=== PATIENT | male | born 1970 | race Caucasian/White ===

== ENCOUNTER 2017-04-14 15:59 | Emergency (ER) | payer BC ==
[2017-04-14 16:06] VITALS: BP 127/82
--- NOTE | 2017-04-14 17:28 | UC ---
General HPI - HPI Summary HPI Summary: FOUND EMBEDDED TICK IN RIGHT MID BACK THREE WEEKS AGO. SMALL RASH DEVELOPED BUT FELT FINE. LAST WEEK HAS HAD ACHES PAINS FATIGUE, CHILLS AND SWEATS. SMALL RASH AREA REMAINS, HAS NOT INCREASED IN SIZE. CONCERN FOR LYME DISEASE. NEW TO AREA, NO PRIMARY CARE CURRENTLY ESTABLISHED. - History of Current Complaint Chief Complaint: UCGeneralIllness Stated Complaint: COLD AND ACHES Time Seen by Provider: 04/14/17 16:40 Hx Obtained From: Patient Onset/Duration: Gradual Onset, Lasting Weeks, Still Present Onset Severity: Moderate Current Severity: Moderate Pain Intensity: 0 Associated Signs & Symptoms: Positive: Fever, Weakness. Negative: Melena, Palpitations, Recent Medication Changes, Syncope, SOB - Allergy/Home Medications Allergies/Adverse Reactions: Allergies Allergy/AdvReac Type Severity Reaction Status Date / Time No Known Allergies Allergy Verified 04/14/17 16:06 PMH/Surg Hx/FS Hx/Imm Hx Previously Healthy: Yes - Surgical History Surgical History: Yes Surgery Procedure, Year, and Place: hernia repair - Family History Known Family History: Negative: Cardiac Disease, Diabetes - Social History Occupation: Employed Full-time Lives: With Family Alcohol Use: Weekly Substance Use Type: None Smoking Status (MU): Never Smoked Tobacco Review of Systems Constitutional: Chills, Fatigue Skin: Rash Eyes: Negative ENT: Negative Respiratory: Negative Cardiovascular: Negative Gastrointestinal: Negative Genitourinary: Negative Motor: Negative Neurovascular: Negative Musculoskeletal: Negative Neurological: Negative Psychological: Negative All Other Systems Reviewed And Are Negative: Yes Physical Exam Triage Information Reviewed: Yes Appearance: No Pain Distress, Well-Nourished, Ill-Appearing - MILDLY Vital Signs: Initial Vital Signs Temp 98.7 F 04/14/17 16:03 Pulse 79 04/14/17 16:03 Resp 16 04/14/17 16:03 BP 127/82 04/14/17 16:03 Pulse Ox 100 04/14/17 16:03 Vital Signs Reviewed: Yes Eye Exam: Normal ENT Exam: Normal ENT: Positive: Normal ENT inspection, Hearing grossly normal, Pharynx normal, TMs normal Dental Exam: Normal Neck exam: Normal Neck: Positive: Supple, Nontender, No Lymphadenopathy Respiratory Exam: Normal Respiratory: Positive: Chest non-tender, Lungs clear, Normal breath sounds, No respiratory distress, No accessory muscle use Cardiovascular Exam: Normal Cardiovascular: Positive: RRR, No Murmur, Pulses Normal, Brisk Capillary Refill Abdominal Exam: Normal Abdomen Description: Positive: Nontender, No Organomegaly Musculoskeletal Exam: Normal Musculoskeletal: Positive: Strength Intact, ROM Intact Neurological Exam: Normal Psychological Exam: Normal Skin: Positive: rashes - SMALL 1CM X 2CM ERRYTHEMATOUS AREA RIGHT MIDBACK Course/Dx - Differential Dx - Multi-Symptom Differential Diagnoses: Other - POSSIBLE LYME DISEASE Provider Diagnoses: REMOTE TICK BITE; FATIGUE, MYALGIAS; POSSIBLE LYME DISEASE Discharge - Discharge Plan Condition: Stable Disposition: HOME Prescriptions: DOXYcycline CAP(*) [DOXYcycline 100MG CAP(*)] 100 mg PO BID #42 cap Patient Education Materials: Lyme Disease (ED), Tick Bite (ED) Referrals: [facility] [place] [facility] [Outside] Miranda ROSE,Yanick Mcgraw [Medical Doctor] -
[2017-04-14 18:34] LABS: Hematocrit 42 % (42-52); Mean Corpuscular HGB Conc 33 g/dl (31-36); Mean Corpuscular Hemoglobin 30 pg (27-31); Mean Corpuscular Volume 89 fL (80-94); Mean Platelet Volume 8 um3 (7.4-10.4); Red Blood Count 4.74 10^6/ul (4.0-5.4); Red Cell Distribution Width 13 % (10.5-15); White Blood Count 12.1 10^3/ul (3.5-10.8)
== END 2017-04-14 17:00 | disposition home or self-care (01) ==
LOC: UCEAST 15:59
DX: S20.469A Insect bite (nonvenomous) of unspecified back wall of thorax, initial encounter (principal); W57.XXXA Bitten or stung by nonvenomous insect and other nonvenomous arthropods, initial encounter; R53.83 Other fatigue; M79.1 Myalgia
CPT/HCPCS: 36415; 85025; 86617; 86618; 99202; G0463

== ENCOUNTER 2018-06-09 08:58 | Emergency (ER) | payer BC, OTHER ==
[2018-06-09 09:06] VITALS: BP 128/92
[2018-06-09] MEDS ORDERED: Tetan/Diph/Pertus SYR(Tdap)* 0.5 ML SYR(BOOSTRIX) use SYR IM ONE (09:20)
--- NOTE | 2018-06-09 10:16 | UC ---
Laceration HPI - HPI Summary HPI Summary: Patient comes to urgent care today with a 1.5 cm laceration to the mid right third finger palmar surface. He cut this on a trailer hitch prior to arrival neuro motor and circulation intact distally tetanus will be updated today - History Of Current Complaint Chief Complaint: UCLaceration Stated Complaint: FINGER LACERATION Time Seen by Provider: 06/09/18 10:16 Hx Obtained From: Patient Laceration Location: Finger - Right third finger mid shaft palmar surface Mechanism Of Injury: Sharp Trauma Onset/Duration: Sudden Onset Pain Intensity: 4 Pain Scale Used: 0-10 Numeric Aggravating Factors: Nothing Related History: Dominant Hand Right - Allergies/Home Medications Allergies/Adverse Reactions: Allergies Allergy/AdvReac Type Severity Reaction Status Date / Time No Known Allergies Allergy Verified 06/09/18 09:06 PMH/Surg Hx/FS Hx/Imm Hx Previously Healthy: Yes - Surgical History Surgical History: Yes Surgery Procedure, Year, and Place: hernia repair - Family History Known Family History: Positive: None Negative: Cardiac Disease, Diabetes - Social History Occupation: Employed Full-time Lives: With Family Alcohol Use: Weekly Substance Use Type: None Smoking Status (MU): Never Smoked Tobacco - Immunization History Most Recent Tetanus Shot: not up to date Hx Tetanus, Diphtheria Vaccination: Yes Review of Systems Constitutional: Negative Skin: Other - 1.5 cm laceration right middle finger Eyes: Negative ENT: Negative Respiratory: Negative Cardiovascular: Negative Gastrointestinal: Negative Genitourinary: Negative Motor: Negative Neurovascular: Negative Musculoskeletal: Negative Neurological: Negative Psychological: Negative Is Patient Immunocompromised?: No All Other Systems Reviewed And Are Negative: Yes Physical Exam Triage Information Reviewed: Yes Appearance: Well-Appearing, No Pain Distress, Well-Nourished Vital Signs: Initial Vital Signs Temp 97.5 F 06/09/18 09:03 Pulse 59 06/09/18 09:03 Resp 18 06/09/18 09:03 BP 128/92 06/09/18 09:03 Pulse Ox 99 06/09/18 09:03 Vital Signs Reviewed: Yes Eye Exam: Normal Eyes: Positive: Conjunctiva Clear ENT Exam: Normal ENT: Positive: Normal ENT inspection, Hearing grossly normal. Negative: Trismus , Muffled voice, Hoarse voice Dental Exam: Normal Neck exam: Normal Neck: Positive: Supple, Nontender Respiratory Exam: Normal Respiratory: Positive: Chest non-tender, No respiratory distress, No accessory muscle use Cardiovascular Exam: Normal Cardiovascular: Positive: RRR, Pulses Normal, Brisk Capillary Refill Musculoskeletal Exam: Normal Musculoskeletal: Positive: Strength Intact, ROM Intact, No Edema Neurological Exam: Normal Neurological: Positive: Alert, Muscle Tone Normal Psychological Exam: Normal Psychological: Positive: Normal Response To Family Skin Exam: Other Skin: Positive: Other - 1.5 cm laceration right 3rd finger palmar surface-mid shaft Laceration Repair - Laceration Repair 1 Description: Linear Laceration Size After Repair: Length (cm) - 1.5, Width (mm) - 2, Depth (mm) - 3 Modified For Repair: No Type Injection: Digital Anesthesia Used: 1.0% Lido - 5cc Cleansing Completed Via Routine Prep: Yes Irrigation With Pressure Irrigation Device: Yes Closure Material: Sutures Suture Of: Skin Suture Type: Nylon - 5 number 5.0 suture Re-Evaluation - Re-Evaluation First Eval Change: Improved - well approximated n/m/c intact distally Laceration Course/Dx - Course/Dx Course Of Treatment: dressing spling for protection, tylenol ibuprofen prn return in 10-12 days for suture removal - Differential Dx - Laceration/Wound Provider Diagnoses: 1.5 cm laceration with suture repair right 3rd finger Discharge - Sign-Out/Discharge Documenting (check all that apply): Patient Departure - Discharge Plan Condition: Stable Disposition: HOME Prescriptions: Amoxicillin/Clavulanate TAB* [Augmentin TAB 875*] 875 mg PO BID #20 tab Patient Education Materials: Diphtheria/Pertussis/Tetanus Vaccine (By injection ), Finger Laceration (ED) Forms: *Work Release Referrals: [facility] [Outside] - If Needed [facility] [place] [facility] [Outside] - If Needed Additional Instructions: Return in 10-12 days for suture removal - Billing Disposition and Condition Condition: STABLE Disposition: Home
[2018-06-09] MEDS ORDERED: Lidocaine 1%* 5 ML VIAL INJ ONE (10:18)
== END 2018-06-09 11:15 | disposition home or self-care (01) ==
LOC: UCEAST 08:58
DX: S61.212A Laceration without foreign body of right middle finger without damage to nail, initial encounter (principal); W26.8XXA Contact with other sharp object(s), not elsewhere classified, initial encounter; Y93.9 Activity, unspecified; Y92.9 Unspecified place or not applicable; Z23 Encounter for immunization
CPT/HCPCS: 12001; 12042; 90471; 90715; 99211; G0463

== ENCOUNTER 2018-06-25 10:37 | Emergency (ER) | payer OTHER ==
[2018-06-25 10:45] VITALS: BP 118/75
--- NOTE | 2018-06-25 10:59 | UC ---
HPI Wound/Suture Re-check - History Of Current Complaint Chief Complaint: UCLaceration Stated Complaint: STITCH REMOVAL Time Seen by Provider: 06/25/18 10:52 Hx Obtained From: Patient Onset/Duration: Sudden Onset Pain Intensity: 0 Pain Scale Used: 0-10 Numeric - Allergies/Home Medications Allergies/Adverse Reactions: Allergies Allergy/AdvReac Type Severity Reaction Status Date / Time No Known Allergies Allergy Verified 06/25/18 10:43 Home Medications: Home Medications NK [No Home Medications Reported] 06/25/18 [History Confirmed 06/25/18] PMH/Surg Hx/FS Hx/Imm Hx Previously Healthy: Yes - Surgical History Surgical History: Yes Surgery Procedure, Year, and Place: hernia repair - Family History Known Family History: Positive: None Negative: Cardiac Disease, Diabetes - Social History Occupation: Employed Full-time Lives: With Family Alcohol Use: Weekly Substance Use Type: None Smoking Status (MU): Never Smoked Tobacco - Immunization History Most Recent Tetanus Shot: update 05/2018 Hx Tetanus, Diphtheria Vaccination: Yes Review of Systems Constitutional: Negative Skin: Other - well healed wound right index finger Eyes: Negative ENT: Negative Respiratory: Negative Cardiovascular: Negative Gastrointestinal: Negative Genitourinary: Negative Motor: Negative Neurovascular: Negative Musculoskeletal: Negative Neurological: Negative Psychological: Negative Is Patient Immunocompromised?: No All Other Systems Reviewed And Are Negative: Yes Physical Exam Triage Information Reviewed: Yes Appearance: Well-Appearing, No Pain Distress, Well-Nourished Vital Signs: Initial Vital Signs Temp 97.7 F 06/25/18 10:41 Pulse 65 06/25/18 10:41 Resp 16 06/25/18 10:41 BP 118/75 06/25/18 10:41 Pulse Ox 99 06/25/18 10:41 Vital Signs Reviewed: Yes Eye Exam: Normal Eyes: Positive: Conjunctiva Clear ENT Exam: Normal ENT: Positive: Normal ENT inspection, Hearing grossly normal. Negative: Trismus , Muffled voice, Hoarse voice Dental Exam: Normal Neck exam: Normal Neck: Positive: Supple, Nontender Respiratory Exam: Normal Respiratory: Positive: No respiratory distress, No accessory muscle use Cardiovascular Exam: Normal Cardiovascular: Positive: RRR, Pulses Normal, Brisk Capillary Refill Musculoskeletal Exam: Normal Musculoskeletal: Positive: Strength Intact, ROM Intact, No Edema Neurological Exam: Normal Neurological: Positive: Alert, Muscle Tone Normal Psychological Exam: Normal Skin Exam: Normal Skin: Positive: Other - well approximated/healed wound right index finger Course/Dx - Course Course Of Treatment: sutures removed patient tolerated well wound well approximated full rom follow with pcp prn (referral made - Differential Dx - Laceration/Wound Provider Diagnoses: suture removal right index finger Discharge - Sign-Out/Discharge Documenting (check all that apply): Patient Departure All imaging exams completed and their final reports reviewed: No Studies - Discharge Plan Condition: Stable Disposition: HOME Patient Education Materials: Stitches Removal (ED) Referrals: No Primary Care Phys,NOPCP [Primary Care Provider] - [facility] [place] [facility] [Outside] - Billing Disposition and Condition Condition: STABLE Disposition: Home
== END 2018-06-25 11:07 | disposition home or self-care (01) ==
LOC: UCEAST 10:37
DX: Z48.02 Encounter for removal of sutures (principal)

== ENCOUNTER 2019-05-10 13:28 | Emergency (ER) | payer OTHER ==
[2019-05-10 13:57] VITALS: BP 142/83
--- NOTE | 2019-05-10 14:34 | UC ---
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 CAGE WAS FOR AN POUCHED RAT. THE HEAD PERSONAL FITNESS TRAINER SUGGESTED HE BE SEEN FOR PROPHYLACTIC TREATMENT FOR INFECTION. PATIENT IS UP-TO-DATE ON HIS TETANUS 2017. WOUND IS CLEAN AND NONTENDER. THERE IS NO ERYTHEMA OR DRAINAGE. NO FEVER. - History of Current Complaint Chief Complaint: UCLaceration Stated Complaint: puncture womd Time Seen by Provider: 05/10/19 13:43 Hx Obtained From: Patient Severity Currently: None Severity Initially: Mild Pain Intensity: 0 Pain Scale Used: 0-10 Numeric Onset/Duration: Sudden Onset, Lasting Days - 1 DAY Character: Puncture Aggravating Factor(s): Nothing Associated Signs And Symptoms: Positive: Negative - Allergies/Home Medications Allergies/Adverse Reactions: Allergies Allergy/AdvReac Type Severity Reaction Status Date / Time No Known Allergies Allergy Verified 05/10/19 13:54 PMH/Surg Hx/FS Hx/Imm Hx Previously Healthy: Yes - Surgical History Surgical History: Yes Surgery Procedure, Year, and Place: hernia repair - Family History Known Family History: Positive: None Negative: Cardiac Disease, Diabetes - Social History Alcohol Use: Weekly Substance Use Type: None Smoking Status (MU): Never Smoked Tobacco - Immunization History Most Recent Tetanus Shot: update 05/2018 Hx Tetanus, Diphtheria Vaccination: Yes Review of Systems All Other Systems Reviewed And Are Negative: Yes Constitutional: Positive: Negative Skin: Positive: Other - PUNCTURE WOUND RIGHT 3RD FINGER Respiratory: Positive: Negative Cardiovascular: Positive: Negative Gastrointestinal: Positive: Negative Musculoskeletal: Positive: Negative Physical Exam Triage Information Reviewed: Yes Appearance: Well-Appearing, No Pain Distress, Well-Nourished Vital Signs: Initial Vital Signs Temp 99.0 F 05/10/19 13:55 Pulse 65 05/10/19 13:55 Resp 18 05/10/19 13:55 BP 142/83 05/10/19 13:55 Pulse Ox 98 05/10/19 13:55 Vital Signs Reviewed: Yes Eyes: Positive: Conjunctiva Clear ENT: Positive: Hearing grossly normal Neck: Positive: Supple Respiratory: Positive: No respiratory distress, No accessory muscle use Cardiovascular: Positive: Pulses Normal Abdomen Description: Positive: Soft Musculoskeletal: Positive: ROM Intact, No Edema Neurological: Positive: Alert Psychological: Positive: Age Appropriate Behavior Skin: Positive: Other - 2MM PUNCTURE WOUND PAD OF RIGHT 3RD FINGER. NO ERYTHEMA OR DRAINAGE. NOT TTENDER Bite Injury Course/Dx - Course Course Of Treatment: PUNCTURE WOUND LOOKS LIKE IT IS HEALING WELL. WILL GIVE AUGMENTIN TWICE DAILY FOR 10 DAYS TO HELP PREVENT DEVELOPING INFECTION. PATIENT IS UP-TO-DATE ON HIS TETANUS. WOUND WAS FROM A METAL FENCE. DISCUSSED X-RAY TO EVALUATE FOR POSSIBLE FOREIGN BODY. PATIENT DECLINES STATING HE IS QUITE SURE THERE IS NO RETAINED FOREIGN BODY. HE WILL SEEK FOLLOW-UP IF NEEDED. - Differential Dx/Diagnosis Provider Diagnosis: Puncture wound of finger of right hand Discharge - Sign-Out/Discharge Documenting (check all that apply): Patient Departure All imaging exams completed and their final reports reviewed: No Studies - Discharge Plan Condition: Stable Disposition: HOME Prescriptions: Amoxicillin/Clavulanate TAB* [Augmentin TAB 875*] 875 mg PO BID #20 tab Patient Education Materials: Animal Bite (ED) [facility]errals: [facility] [Outside] - If Needed Additional Instructions: TAKE THE ANTIBIOTICS FOR THE FULL 10 DAYS TO COVER FOR POSSIBLE INFECTION. SEEK FOLLOW-UP IF YOU DEVELOP SPREADING REDNESS OF THE SKIN, PURULENT DRAINAGE, FEVER, INCREASED PAIN OR ANY OTHER CONCERNING SYMPTOMS. CALL THE NUMBER BELOW FOR ASSISTANCE IN ESTABLISHING WITH A PCP An additional resource available to assist in finding the appropriate physician for your health care needs is the [facility] ([facility]). You may contact them by calling [phone]. - Billing Disposition and Condition Condition: STABLE Disposition: Home
== END 2019-05-10 14:35 | disposition home or self-care (01) ==
LOC: UCEAST 13:28
DX: S61.232A Puncture wound without foreign body of right middle finger without damage to nail, initial encounter (principal); W22.8XXA Striking against or struck by other objects, initial encounter; Y93.F9 Activity, other caregiving; Y92.89 Other specified places as the place of occurrence of the external cause; Y99.0 Civilian activity done for income or pay
CPT/HCPCS: 99212; G0463